=== PATIENT | male | born 1970 | race African-American/Black ===

== ENCOUNTER 2019-03-05 19:15 | Emergency (ER) | payer OTHER, SELFPAY | END 2019-03-05 19:48 | LOC: ERS 19:15 | DX: F14.10 Cocaine abuse, uncomplicated (principal); F31.9 Bipolar disorder, unspecified; F17.200 Nicotine dependence, unspecified, uncomplicated; Z79.899 Other long term (current) drug therapy | CPT/HCPCS: 99282 ==